=== PATIENT | female | born 1975 | race American Indian/Alaskan Native ===

== ENCOUNTER 2018-12-12 09:45 | Inpatient (IN) | payer MEDICAID ==
[2018-12-12 10:34] LABS: Basophils # (Auto) 0.1 K/mm3 (0.0-0.1); Basophils % (Auto) 0.9 % (0.0-1.8); Eosinophils # (Auto) 0.1 K/mm3 (0.0-0.4); Eosinophils % (Auto) 0.8 % (0.0-4.3); Hematocrit 35.1 % (30.3-42.9); Hemoglobin 11.2 gm/dl (10.1-14.3); Lymphocytes # (Auto) 2.4 K/mm3 (1.2-5.4); Lymphocytes % (Auto) 25.4 % (13.4-35.0); Mean Corpuscular HGB Conc 32 % (30-34); Mean Corpuscular Volume 80 fl (79-97); Monocytes # (Auto) 0.6 K/mm3 (0.0-0.8); Monocytes % (Auto) 6.8 % (0.0-7.3); Platelet Count 346 K/mm3 (140-440); Red Blood Count 4.38 M/mm3 (3.65-5.03); Red Cell Distribution Width 16.8 % (13.2-15.2)
[2018-12-12 10:50] LABS: INR 0.98 (0.87-1.13); Partial Thromboplastin Time 25.7 Sec. (24.2-36.6)
[2018-12-12 11:03] LABS: Alanine Aminotransferase 11 units/L (7-56); BUN/Creatinine Ratio 18; Blood Urea Nitrogen 11 mg/dL (7-17); Calcium 8.3 mg/dL (8.4-10.2); Hemolysis Index 86
[2018-12-12 11:14] LABS: Bilirubin,Direct < 0.2 mg/dL (0-0.2)
[2018-12-12] MEDS ORDERED: TYLENOL PO PRN (12:01)
[2018-12-12] MEDS ORDERED: ZOFRAN IV PRN (12:01)
[2018-12-12] MEDS ORDERED: SODIUM CHLORIDE FLUSH SYRINGE 10 ML IV PRN ×2 (12:01→13:22)
[2018-12-12] MEDS ORDERED: PROVENTIL IH PRN (12:01)
[2018-12-12] MEDS ORDERED: ANUCORT-HC PR PRN (12:03)
[2018-12-12] MEDS ORDERED: COLACE PO PRN (12:03)
[2018-12-12] MEDS ORDERED: IBUPROFEN PO PRN (12:03)
--- NOTE | 2018-12-12 12:12 | Emergency Department Report ---
ED Chest Pain HPI - General Chief Complaint: Arrhythmia/Palpitations Stated Complaint: SVT Time Seen by Provider: 12/12/18 10:04 Source: patient, EMS Mode of arrival: Stretcher Limitations: No Limitations - History of Present Illness Initial Comments: 43-year-old female with no prior cardiac history experienced a tachycardia and chest pain since about 2 AM. Finally she summoned EMS when she felt somewhat weak and dizzy. He was found to be in SVT. She was given 6 mg of adenosine and was successfully cardioverted in the field. She states this is first time she's had an episode like this. She's had no recent travel. She denies any leg pain or swelling. She denies taking any current prescription medication. She denies a family history of venous thromboembolism. She is morbidly obese. MD Complaint: chest pain -: Gradual Onset: during rest Pain Location: substernal Pain Radiation: none Severity: moderate Severity scale (0 -10): 0 Quality: heaviness Consistency: now resolved Improves With: other (resolved some time after adenosine but had chest pain immediately upon administration) Worsens With: other (I presume SVT) - Related Data Previous Rx's Medication Instructions Recorded Last Taken Type Ibuprofen [Motrin 800 MG tab] 800 mg PO Q8HR PRN #20 tablet 05/08/15 Unknown Rx Penicillin Vk [Veetids TAB] 500 mg PO Q8H #30 tablet 05/08/15 Unknown Rx predniSONE [Deltasone] 20 mg PO QAM #5 tab 05/08/15 Unknown Rx Docusate Sodium [Colace CAP] 100 mg PO BID PRN #30 capsule 06/09/15 Unknown Rx Hydrocort/Pramoxine [Proctofoam-Hc] 10 gm ME QHS #1 can 06/09/15 Unknown Rx Hydrocortisone [Anucort-HC SUPPOS] 25 mg RC BID PRN #10 supp.rect 06/09/15 Unknown Rx Allergies Allergy/AdvReac Type Severity Reaction Status Date / Time No Known Allergies Allergy Unverified 05/08/15 11:06 Heart Score - HEART Score History: Moderately suspicious EKG: Normal Age: < 45 Risk factors: 1-2 risk factors Troponin: < normal limit HEART Score: 2 - Critical Actions Critical Actions: 0-3 pts:0.9-1.7%risk of adverse cardiac event.Candidate for discharge ED Review of Systems ROS: Stated complaint: SVT Other details as noted in HPI Constitutional: denies: chills, fever Eyes: denies: eye pain, eye discharge, vision change ENT: denies: ear pain, throat pain Respiratory: shortness of breath. denies: cough, wheezing Cardiovascular: chest pain. denies: palpitations Endocrine: no symptoms reported Gastrointestinal: denies: abdominal pain, nausea, diarrhea Genitourinary: denies: urgency, dysuria, discharge Musculoskeletal: denies: back pain, joint swelling, arthralgia Skin: denies: rash, lesions Neurological: denies: headache, weakness, paresthesias Psychiatric: denies: anxiety, depression Hematological/Lymphatic: denies: easy bleeding, easy bruising ED Past Medical Hx - Past Medical History Previous Medical History?: No - Surgical History Past Surgical History?: Yes Hx Cholecystectomy: Yes - Social History Smoking Status: Never Smoker Substance Use Type: Alcohol - Medications Home Medications: Home Medications Medication Instructions Recorded Confirmed Last Taken Type Ibuprofen [Motrin 800 MG tab] 800 mg PO Q8HR PRN #20 tablet 05/08/15 Unknown Rx Penicillin Vk [Veetids TAB] 500 mg PO Q8H #30 tablet 05/08/15 Unknown Rx predniSONE [Deltasone] 20 mg PO QAM #5 tab 05/08/15 Unknown Rx Docusate Sodium [Colace CAP] 100 mg PO BID PRN #30 capsule 06/09/15 Unknown Rx Hydrocort/Pramoxine [Proctofoam-Hc] 10 gm ME QHS #1 can 06/09/15 Unknown Rx Hydrocortisone [Anucort-HC SUPPOS] 25 mg RC BID PRN #10 supp.rect 06/09/15 Unknown Rx ED Physical Exam - General Limitations: No Limitations General appearance: alert, in no apparent distress - Head Head exam: Present: atraumatic, normocephalic - Eye Eye exam: Present: normal appearance - ENT ENT exam: Present: mucous membranes moist - Neck Neck exam: Present: normal inspection - Respiratory Respiratory exam: Present: normal lung sounds bilaterally. Absent: respiratory distress - Cardiovascular Cardiovascular Exam: Present: regular rate, normal rhythm. Absent: systolic murmur, diastolic murmur, rubs, gallop - GI/Abdominal GI/Abdominal exam: Present: soft, normal bowel sounds. Absent: distended, tenderness, guarding, rebound, rigid - Extremities Exam Extremities exam: Present: normal inspection - Back Exam Back exam: Present: normal inspection - Neurological Exam Neurological exam: Present: alert, oriented X3, CN II-XII intact. Absent: motor sensory deficit - Psychiatric Psychiatric exam: Present: normal affect, normal mood - Skin Skin exam: Present: warm, dry, intact, normal color. Absent: rash ED Course Vital Signs 12/12/18 12/12/18 12/12/18 09:56 10:06 10:15 Temperature 97.4 F L Pulse Rate 97 H 95 H 96 H Respiratory 16 13 11 L Rate Blood Pressure 106/60 104/66 O2 Sat by Pulse 100 100 Oximetry 12/12/18 12/12/18 12/12/18 10:17 10:30 10:45 Temperature Pulse Rate 93 H 91 H Respiratory 11 L 13 12 Rate Blood Pressure 122/80 124/55 O2 Sat by Pulse 100 100 100 Oximetry 12/12/18 12/12/18 12/12/18 11:00 11:15 11:30 Temperature Pulse Rate 89 90 89 Respiratory 13 16 13 Rate Blood Pressure 124/55 109/60 122/92 O2 Sat by Pulse 100 99 98 Oximetry AURELIO score - Aurelio Score Age > 65: (0) No Aspirin use within the Past 7 Days: (0) No 3 or more CAD Risk Factors: (0) No 2 or more Angina events in past 24 hrs: (0) No Known CAD with more than 50% Stenosis: (0) No Elevated Cardiac Markers: (0) No ST Deviation Greater than 0.5mm: (0) No AURELIO Score: 0 ED Medical Decision Making - Lab Data Result diagrams: 12/12/18 10:08 12/12/18 10:08 Laboratory Results - last 24 hr 12/12/18 12/12/18 12/12/18 10:08 10:08 10:08 WBC 9.4 RBC 4.38 Hgb 11.2 Hct 35.1 MCV 80 MCH 26 L MCHC 32 RDW 16.8 H Plt Count 346 Lymph % (Auto) 25.4 [place] % (Auto) 6.8 Eos % (Auto) 0.8 Baso % (Auto) 0.9 Lymph # 2.4 [place] # 0.6 Eos # 0.1 Baso # 0.1 Seg Neutrophils % 66.1 Seg Neutrophils # 6.2 PT INR APTT D-Dimer Sodium 140 Potassium 4.8 Chloride 103.6 Carbon Dioxide 23 Anion Gap 18 BUN 11 Creatinine 0.6 L Estimated GFR > 60 BUN/Creatinine Ratio 18 Glucose 123 H Calcium 8.3 L Magnesium 1.80 Total Bilirubin 0.30 Direct Bilirubin < 0.2 AST 16 ALT 11 Alkaline Phosphatase 96 Troponin T < 0.010 NT-Pro-B Natriuret Pep 204.9 Total Protein 6.7 Albumin 3.0 L Albumin/Globulin Ratio 0.8 HCG, Qual Negative 12/12/18 12/12/18 10:14 10:14 WBC RBC Hgb Hct MCV MCH MCHC RDW Plt Count Lymph % (Auto) [place] % (Auto) Eos % (Auto) Baso % (Auto) Lymph # [place] # Eos # Baso # Seg Neutrophils % Seg Neutrophils # PT 13.6 INR 0.98 APTT 25.7 D-Dimer 493.8 H Sodium Potassium Chloride Carbon Dioxide Anion Gap BUN Creatinine Estimated GFR BUN/Creatinine Ratio Glucose Calcium Magnesium Total Bilirubin Direct Bilirubin AST ALT Alkaline Phosphatase Troponin T NT-Pro-B Natriuret Pep Total Protein Albumin Albumin/Globulin Ratio HCG, Qual - EKG Data -: EKG Interpreted by Me EKG shows normal: sinus rhythm, axis, intervals, QRS complexes Rate: normal - EKG Data Interpretation: nonspecific ST-T wave charito - Radiology Data interpreted by me: Chest x-ray shows no acute process Critical care attestation.: If time is entered above; I have spent that time in minutes in the direct care of this critically ill patient, excluding procedure time. ED Disposition Clinical Impression: SVT (supraventricular tachycardia), Morbid obesity with BMI of 60.0-69.9, adult Chest pain Qualifiers: Chest pain type: unspecified Qualified Code(s): R07.9 - Chest pain, unspecified Disposition: OP ADMIT IP TO THIS HOSP Is pt being admited?: Yes Does the pt Need Aspirin: Yes Condition: Stable Instructions: Chest Pain (ED) Referrals: CHANA STAHL MD [Primary Care Provider] - 3-5 Days Time of Disposition: 12:22
[2018-12-12] MEDS ORDERED: ASPIRIN PO ONE (12:22)
--- NOTE | 2018-12-12 12:45 | XRay Report ---
Single view chest: History: Hypertension. Findings: Normal cardiomediastinal silhouette. Trachea is midline. No consolidation, pneumothorax or pleural effusion. Impression: No acute cardiopulmonary findings.
--- NOTE | 2018-12-12 12:58 | Cat Scan Report ---
CTA chest: History: Chest pain. Findings: No endobronchial or mediastinal mass. No evidence of pulmonary embolism. No pleural pericardial effusion. Normal lung parenchyma. No consolidation or mass. Impression: No evidence of pulmonary embolism. No acute lung changes.
[2018-12-12] MEDS ORDERED: NITROSTAT SL PRN (13:22)
--- NOTE | 2018-12-12 13:22 | History and Physical Report ---
History of Present Illness Date of admission: 12/12/18 12:01 Chief complaint: My chest hurts History of present illness: 43 YO Female with MO, Obesity Hypoventilation, presents to ED for evaluation. Pt states that she experienced sudden onset chest pain that awoke her from sleep around 0200hrs. Pt also report chest palpitations. Pt states that her pain was 6/10, substernal, nonradiating, curshing in nature, worsened with deep breathing, relieved with rest. Pt acknowledges shortness of breath, decreased exercise tolerance, leg edema, dypsnea on exertion. EMS notified and upon arrival the patient was found to have SVT and was cardioverted with Adenosine. Pt transported to [facility]. Pt seen and evaluated in ED and found to have Chest Pain, SVT, as well as symptoms consistent with Diastolic CHF. Pt admitted to Telemetry. Cardiology consulted in ED. Pt denies fever, chills, NVD, Prolonged travel/immobility, individual/family history of DVT/PE/Blood Clotting Disorders, Productive cough, Hemoptysis, or BRBPR. Past History Past Medical History: other (MO, Obesity Hypoventilation Syndrome) Past Surgical History: cholecystectomy Social history: , lives with family. denies: smoking, alcohol abuse, prescription drug abuse Family history: hypertension Medications and Allergies Allergies Allergy/AdvReac Type Severity Reaction Status Date / Time No Known Allergies Allergy Unverified 05/08/15 11:06 Home Medications Medication Instructions Recorded Confirmed Last Taken Type No Known Home Medications [No 12/12/18 12/12/18 Unknown History Reported Home Medications] Active Meds: Active Medications Acetaminophen (Tylenol) 650 mg PO Q4H PRN PRN Reason: Pain MILD(1-3)/Fever >100.5/MARTINEZ Albuterol (Proventil) 2.5 mg IH Q4HRT PRN PRN Reason: Shortness Of Breath Docusate Sodium (Colace) 100 mg PO BID PRN PRN Reason: Constipation Famotidine (Pepcid) 20 mg PO BID ZACHERY Hydrocortisone Acetate (Anucort-Hc) 25 mg NH BID PRN PRN Reason: Pain Hydrocortisone/Pramoxine (Proctofoam-Hc) 5 applic NH QHS ZACHERY Ibuprofen (Motrin) 800 mg PO Q8HR PRN PRN Reason: Pain Ondansetron HCl (Zofran) 4 mg IV Q8H PRN PRN Reason: Nausea And Vomiting Prednisone (Deltasone) 20 mg PO QAM ZACHERY Sodium Chloride (Sodium Chloride Flush Syringe 10 Ml) 10 ml IV BID ZACHERY Sodium Chloride (Sodium Chloride Flush Syringe 10 Ml) 10 ml IV PRN PRN PRN Reason: LINE FLUSH Review of Systems Constitutional: no weight loss, no weight gain, no fever, no chills Ears, nose, mouth and throat: no ear pain, no ear discharge, no tinnitis, no decreased hearing, no nose pain Breasts: no change in shape, no swelling Cardiovascular: chest pain, palpitations, rapid/irregular heart beat, shortness of breath, dyspnea on exertion, leg edema, decreased exercise tolerance Gastrointestinal: no abdominal pain, no nausea, no vomiting, no diarrhea, no constipation Genitourinary Female: no pelvic pain, no flank pain, no menorrhagia, no dysuria, no urinary frequency, no urgency Rectal: no pain, no incontinence, no bleeding Musculoskeletal: no neck stiffness, no neck pain, no shooting arm pain, no arm numbness/tingling, no low back pain Integumentary: no rash, no pruritis, no redness, no sores Neurological: no transient paralysis, no paralysis, no weakness, no parathesias, no numbness, no tingling Psychiatric: no memory loss, no change in sleep habits, no sleep disturbances, no insomnia, no hypersomnia Endocrine: no cold intolerance, no heat intolerance, no polyphagia, no excessive thirst, no polydipsia, no polyuria Hematologic/Lymphatic: no easy bruising, no easy bleeding, no lymphadenopathy, no lymphedema Allergic/Immunologic: no urticaria, no allergic rhinitis, no persistent infections, no anaphylaxis, no angioedema Exam - Constitutional Vitals: Temp Pulse Resp BP Pulse Ox 97.4 F L 88 15 123/77 99 12/12/18 09:56 12/12/18 12:00 12/12/18 12:00 12/12/18 12:00 12/12/18 12:00 General appearance: Present: mild distress, obese - EENT Eyes: Present: PERRL ENT: hearing intact, clear oral mucosa - Neck Neck: Present: supple, normal ROM - Respiratory Respiratory effort: normal Respiratory: bilateral: CTA - Cardiovascular Heart Sounds: Present: S1 & S2. Absent: rub, click - Extremities Extremity abnormal: edema Peripheral Pulses: within normal limits - Abdominal General gastrointestinal: Present: soft, non-tender, non-distended, normal bowel sounds Female genitourinary: Present: normal - Integumentary Integumentary: Present: clear, warm, dry - Musculoskeletal Musculoskeletal: gait normal, strength equal bilaterally - Psychiatric Psychiatric: appropriate mood/affect, intact judgment & insight - Neurologic Neurologic: CNII-XII intact, moves all extremities Results - Labs CBC & Chem 7: 12/12/18 10:08 12/12/18 10:08 Labs: Abnormal lab results 12/12/18 12/12/18 12/12/18 Range/Units 10:08 10:08 10:14 MCH 26 L (28-32) pg RDW 16.8 H (13.2-15.2) % D-Dimer 493.8 H (0-234) ng/mlDDU Creatinine 0.6 L (0.7-1.2) mg/dL Glucose 123 H (65-100) mg/dL Calcium 8.3 L (8.4-10.2) mg/dL Albumin 3.0 L (3.9-5) g/dL Assessment and Plan - Patient Problems (1) CHF (congestive heart failure) Current Visit: Yes Status: Suspected Qualifiers: Heart failure chronicity: acute Plan to address problem: Admit to telemetry, Echo, Cardiology consulted in ED, strict I/O, daily weight, BNP, chest x ray, (2) Chest pain Current Visit: Yes Status: Acute Qualifiers: Chest pain type: unspecified Qualified Code(s): R07.9 - Chest pain, unspecified Plan to address problem: Serial cardiac enzymes, ekg, admit to telemetry, d dimer, morphine, supplemental oxygen, nitro, aspirin (3) SVT (supraventricular tachycardia) Current Visit: Yes Status: Acute Plan to address problem: Admit to telemetry, S/P Cardioversion with Adenosine, magnesium level (4) DVT prophylaxis Current Visit: Yes Status: Acute Plan to address problem: SCD to BLE while in bed.
[2018-12-12] MEDS ORDERED: ASPIRIN ONE (13:36)
[2018-12-12 18:19] LABS: Chol/HDL Ratio 2.73 %
[2018-12-12] MEDS: PEPCID PO SCH (21:06)
[2018-12-12] MEDS: SODIUM CHLORIDE FLUSH SYRINGE 10 ML IV SCH (21:07)
[2018-12-12] MEDS ORDERED: PROCTOFOAM-HC PR SCH (22:00)
[2018-12-13 06:20] LABS: BUN/Creatinine Ratio 15; Blood Urea Nitrogen 9 mg/dL (7-17); Calcium 8.2 mg/dL (8.4-10.2); Hemolysis Index 3
[2018-12-13] MEDS: SODIUM CHLORIDE FLUSH SYRINGE 10 ML IV SCH (09:05)
[2018-12-13] MEDS: PEPCID PO SCH (09:05)
--- NOTE | 2018-12-13 09:38 | Consultation ---
History of Present Illness Consult date: 12/13/18 Consult reason: other (SVT) History of present illness: Patient is a 43 year old woman with no prior medical history who is was brought in with palpitations. Patient reports she woke up with palpitations and dizziness. She reports drinking wine with dinner before going to bed. She denies chest pain and shortness of breath. There was no syncope. EMS was called and she was found to be in SVT. She was reportedly given 6 mg of adenosine and was successfully cardioverted in the field. There are no EMS strips available for review. 12 lead EKG done in the emergency department shows a normal sinus rhythm. Further evaluation with an echocardiogram shows a preserved left ventricular systolic function, ejection fraction 55-60%. Past History Past Surgical History: cholecystectomy Social history: , lives with family. denies: smoking, alcohol abuse, prescription drug abuse Family history: hypertension Medications and Allergies Allergies Allergy/AdvReac Type Severity Reaction Status Date / Time No Known Allergies Allergy Unverified 05/08/15 11:06 Home Medications Medication Instructions Recorded Confirmed Last Taken Type No Known Home Medications [No 12/12/18 12/12/18 Unknown History Reported Home Medications] Active Meds: Active Medications Acetaminophen (Tylenol) 650 mg PO Q4H PRN PRN Reason: Pain MILD(1-3)/Fever >100.5/MARTINEZ Albuterol (Proventil) 2.5 mg IH Q4HRT PRN PRN Reason: Shortness Of Breath Aspirin (Baby Aspirin) 81 mg PO QDAY [facility] Last Admin: 12/13/18 09:05 Dose: 81 mg Documented by: Docusate Sodium (Colace) 100 mg PO BID PRN PRN Reason: Constipation Famotidine (Pepcid) 20 mg PO BID [facility] Last Admin: 12/13/18 09:05 Dose: 20 mg Documented by: Hydrocortisone Acetate (Anucort-Hc) 25 mg ME BID PRN PRN Reason: Pain Hydrocortisone/Pramoxine (Proctofoam-Hc) 5 applic ME QHS [facility] Last Admin: 12/12/18 21:07 Dose: Not Given Documented by: Ibuprofen (Motrin) 800 mg PO Q8HR PRN PRN Reason: Pain Nitroglycerin (Nitrostat) 0.4 mg SL Q5M PRN PRN Reason: Chest Pain Ondansetron HCl (Zofran) 4 mg IV Q8H PRN PRN Reason: Nausea And Vomiting Pantoprazole Sodium (Protonix) 20 mg PO QDAY [facility] Last Admin: 12/13/18 09:04 Dose: 20 mg Documented by: Prednisone (Deltasone) 20 mg PO QAM [facility] Last Admin: 12/13/18 09:04 Dose: 20 mg Documented by: Sodium Chloride (Sodium Chloride Flush Syringe 10 Ml) 10 ml IV BID [facility] Last Admin: 12/13/18 09:05 Dose: 10 ml Documented by: Sodium Chloride (Sodium Chloride Flush Syringe 10 Ml) 10 ml IV PRN PRN PRN Reason: LINE FLUSH Sodium Chloride (Sodium Chloride Flush Syringe 10 Ml) 10 ml IV PRN PRN PRN Reason: LINE FLUSH Physical Examination Vital Signs Temp Pulse Resp BP Pulse Ox 97.4 F L 97 H 16 106/60 100 12/12/18 09:56 12/12/18 09:56 12/12/18 09:56 12/12/18 09:56 12/12/18 09:56 General appearance: no acute distress, obese HEENT: Positive: PERRL Neck: Positive: trachea midline Cardiac: Positive: Reg Rate and Rhythm Lungs: Positive: Decreased Breath Sounds Neuro: Positive: Grossly Intact Extremities: Absent: edema Results 12/12/18 10:08 12/13/18 05:13 Cardiac Enzymes 12/12/18 Range/Units 10:08 AST 16 (5-40) units/L Coagulation 12/12/18 Range/Units 10:14 PT 13.6 (12.2-14.9) Sec. INR 0.98 (0.87-1.13) APTT 25.7 (24.2-36.6) Sec. Lipids 12/12/18 Range/Units 17:10 Triglycerides 89 (2-149) mg/dL Cholesterol 156 (50-199) mg/dL HDL Cholesterol 57 (40-59) mg/dL Cholesterol/HDL Ratio 2.73 % CBC 12/12/18 Range/Units 10:08 WBC 9.4 (4.5-11.0) K/mm3 RBC 4.38 (3.65-5.03) M/mm3 Hgb 11.2 (10.1-14.3) gm/dl Hct 35.1 (30.3-42.9) % Plt Count 346 (140-440) K/mm3 Lymph # 2.4 (1.2-5.4) K/mm3 [place] # 0.6 (0.0-0.8) K/mm3 Eos # 0.1 (0.0-0.4) K/mm3 Baso # 0.1 (0.0-0.1) K/mm3 Comprehensive Metabolic Panel 12/12/18 12/13/18 Range/Units 10:08 05:13 Sodium 140 141 (137-145) mmol/L Potassium 4.8 3.6 D (3.6-5.0) mmol/L Chloride 103.6 104.4 (98-107) mmol/L Carbon Dioxide 23 25 (22-30) mmol/L BUN 11 9 (7-17) mg/dL Creatinine 0.6 L 0.6 L (0.7-1.2) mg/dL Glucose 123 H 119 H (65-100) mg/dL Calcium 8.3 L 8.2 L (8.4-10.2) mg/dL Direct Bilirubin < 0.2 (0-0.2) mg/dL AST 16 (5-40) units/L ALT 11 (7-56) units/L Alkaline Phosphatase 96 (35-129) units/L Total Protein 6.7 (6.3-8.2) g/dL Albumin 3.0 L (3.9-5) g/dL Assessment and Plan Paroxysmal SVT Obesity Echocardiogram reveals a preserved left ventricular systolic function, ejection fraction 55-60%. Check a TSH. Beta blockers for suppression of pSVT.
[2018-12-13] MEDS ORDERED: DELTASONE PO SCH (10:00)
[2018-12-13] MEDS ORDERED: BABY ASPIRIN PO SCH (10:00)
[2018-12-13] MEDS ORDERED: PROTONIX PO SCH (10:00)
[2018-12-13] MEDS ORDERED: TOPROL XL PO SCH (12:00)
[2018-12-13 16:51] VITALS: BP 154/89
--- NOTE | 2018-12-13 17:07 | Discharge Summary ---
Providers - Providers Date of Admission: 12/12/18 12:01 Date of discharge: 12/13/18 Attending physician: NORBERT BASS 12/12/18 Consult to Cardiac Rehabilitation [CONS] Routine Reason For Exam: Phase I 12/12/18 13:22 Consult to Cardiology [CONS] Routine Consulting Provider: AMBER DICK Reason For Exam: svt/chest pain [facility] MD Hospitalization Condition: Stable Procedures: ECHO -normal 55 to 60 percent Hospital course: Assessment and Plan (1) SVT (supraventricular tachycardia) Current Visit: Yes Status: Acute Plan to address problem: Cardioversion with Adenosine Now in sinus rhythm () CHF (congestive heart failure) Current Visit: Yes Status: Suspected Qualifiers: Heart failure chronicity: acute Plan to address problem: Normal EF Disposition: TO HOME OR SELFCARE Core Measure Documentation - Palliative Care Palliative Care/ Comfort Measures: Not Applicable - Core Measures Any of the following diagnoses?: none Exam - Constitutional Vitals: Temp Pulse Resp BP Pulse Ox 97.8 F 89 12 154/89 100 12/13/18 04:30 12/13/18 16:49 12/13/18 04:30 12/13/18 16:49 12/13/18 16:49 General appearance: Present: no acute distress, well-nourished - EENT Eyes: Present: PERRL ENT: hearing intact, clear oral mucosa - Neck Neck: Present: supple, normal ROM - Respiratory Respiratory effort: normal Respiratory: bilateral: CTA - Cardiovascular Heart rate: 78 Rhythm: regular Heart Sounds: Present: S1 & S2. Absent: rub, click - Extremities Extremities: no ischemia, pulses intact, pulses symmetrical, No edema Peripheral Pulses: within normal limits - Abdominal General gastrointestinal: Present: soft, non-tender, non-distended, normal bowel sounds Female genitourinary: Present: normal - Rectal Rectal Exam: deferred - Integumentary Integumentary: Present: clear, warm, dry - Musculoskeletal Musculoskeletal: gait normal, strength equal bilaterally - Psychiatric Psychiatric: appropriate mood/affect, intact judgment & insight - Neurologic Neurologic: CNII-XII intact, moves all extremities - Allied Health Allied health notes reviewed: nursing, case management Plan Activity: no restrictions Diet: low fat, low cholesterol, low salt Follow up with: CHANA STAHL MD [Primary Care Provider] - 3-5 Days
== END 2018-12-13 18:05 | disposition home or self-care (01) | DRG 309 ==
LOC: ED 09:45 → 4A 12:01
PROVIDERS: ADMIT Internal Medicine; ATTEND Internal Medicine
PROC: 5A2204Z Restoration of Cardiac Rhythm, Single (ICD-10-PCS; principal; 2018-12-12)
DX: I47.1 Supraventricular tachycardia (principal); Z68.44 Body mass index [BMI] 60.0-69.9, adult; E66.01 Morbid (severe) obesity due to excess calories; I50.9 Heart failure, unspecified; Z90.49 Acquired absence of other specified parts of digestive tract; Z82.49 Family history of ischemic heart disease and other diseases of the circulatory system; Z72.89 Other problems related to lifestyle
CPT/HCPCS: 36415; 71045; 71275; 80048; 80061; 80076; 83735; 83880; 84439; 84443; 84484; 84703; 85025; 85379; 85610; 85730; 93005; 93010; 93306; G0378; J7512; Q9967

== ENCOUNTER 2020-01-04 22:06 | Inpatient (IN) | payer MEDICAID, OTHER ==
[2020-01-04] MEDS ORDERED: ASPIRIN 325 MG TAB PO ONE (22:32)
[2020-01-04] MEDS ORDERED: dilTIAZem 50 MG/10 ML INJ ONE (22:37)
[2020-01-04] MEDS ORDERED: ADENOSINE 6 MG/2 ML INJ ONE (22:37)
[2020-01-04] MEDS ORDERED: ADENOSINE 6 MG/2 ML INJ IV ONE (22:38)
[2020-01-04 23:34] LABS: Basophils # (Auto) 0.2 K/mm3 (0.0-0.1); Basophils % (Auto) 1.3 % (0.0-1.8); Eosinophils # (Auto) 0.1 K/mm3 (0.0-0.4); Eosinophils % (Auto) 0.9 % (0.0-4.3); Hematocrit 32.6 % (30.3-42.9); Lymphocytes # (Auto) 4.5 K/mm3 (1.2-5.4); Lymphocytes % (Auto) 32.9 % (13.4-35.0); Mean Corpuscular HGB Conc 31 % (30-34); Mean Corpuscular Volume 72 fl (79-97); Monocytes # (Auto) 0.8 K/mm3 (0.0-0.8); Monocytes % (Auto) 5.6 % (0.0-7.3); Platelet Count 500 K/mm3 (140-440); Red Blood Count 4.54 M/mm3 (3.65-5.03); Red Cell Distribution Width 17.9 % (13.2-15.2)
--- NOTE | 2020-01-04 23:55 | Emergency Department Report ---
ED Palpitations HPI - General Chief Complaint: Chest Pain Stated Complaint: HEART RACE FAST Time Seen by Provider: 01/04/20 22:42 Source: patient Mode of arrival: Ambulatory Limitations: No Limitations - History of Present Illness Initial Comments: 44-year-old female with a past medical history of obesity and previous SVT presents the hospital complaining of palpitations since 5 or 6 PM. Symptoms are intermittent with mild intermittent shortness of breath. Patient denies chest pain, calf tenderness, leg edema, history of PE/DVT, cough, fever, or near syncope. Patient was seen here in December 2018 for similar symptoms. She was reported to be in SVT and converted after adenosine 6 mg in route to the hospital. Patient was admitted and had cardiac work-up including echocardiogram which was unremarkable. As per cardiology note a beta-wayne was recommended. Patient states she was on medications for her heart but discontinued without consulting a physician. As per medical record patient was placed on metoprolol 25 mg ER. - Related Data Previous Rx's Medication Instructions Recorded Last Taken Type Metoprolol Succinate [Toprol Xl] 25 mg PO QDAY #30 tab.er.24h 12/13/18 Unknown Rx Allergies Allergy/AdvReac Type Severity Reaction Status Date / Time No Known Allergies Allergy Unverified 05/08/15 11:06 ED Review of Systems ROS: Stated complaint: HEART RACE FAST Other details as noted in HPI Comment: All other systems reviewed and negative ED Past Medical Hx - Past Medical History Previous Medical History?: Yes Hx Congestive Heart Failure: No Hx Diabetes: No Hx Asthma: No Hx COPD: No Hx HIV: No - Surgical History Past Surgical History?: Yes Hx Cholecystectomy: Yes - Social History Smoking Status: Unknown if ever smoked Substance Use Type: None - Medications Home Medications: Home Medications Medication Instructions Recorded Confirmed Last Taken Type Metoprolol Succinate [Toprol Xl] 25 mg PO QDAY #30 tab.er.24h 12/13/18 Unknown Rx ED Physical Exam - General Limitations: No Limitations - Other Other exam information: General: No acute distress Head: Atraumatic Eyes: normal appearance ENT: Moist mucous membranes Neck: Normal appearance, no midline tenderness Chest: Clear to auscultation bilaterally CV: Tachycardic regular rhythm Abdomen: Soft, normal bowel sounds, nontender, nondistended, no rebound or guarding Back: Normal inspection Extremity: Normal inspection, full range of motion, no calf tenderness or leg edema Neuro: Alert O x 3, no facial asymmetry, speech clear, no gross motor sensory deficit Psych: Appropriate behavior Skin: No rash ED Course Vital Signs 01/04/20 01/04/20 01/04/20 22:22 22:32 22:34 Temperature 99.4 F Pulse Rate 194 H 192 H Respiratory 22 26 H Rate Blood Pressure 136/88 Blood Pressure [Left] O2 Sat by Pulse 98 Oximetry 01/04/20 01/04/20 01/04/20 22:46 23:00 23:07 Temperature Pulse Rate 106 H 107 H 109 H Respiratory 17 17 13 Rate Blood Pressure Blood Pressure 145/87 [Left] O2 Sat by Pulse 98 98 99 Oximetry 01/04/20 01/04/20 01/04/20 23:16 23:30 23:46 Temperature Pulse Rate 105 H 104 H 101 H Respiratory 21 20 16 Rate Blood Pressure 145/87 145/87 145/87 Blood Pressure [Left] O2 Sat by Pulse 99 100 99 Oximetry 01/05/20 01:56 Temperature 98.5 F Pulse Rate Respiratory Rate Blood Pressure Blood Pressure [Left] O2 Sat by Pulse Oximetry - Consultations Consultation #1: 01/05/20 01:45 case d/w Dr Núñez with [facility] requested that pt be admitted here ED Medical Decision Making - Lab Data Result diagrams: 01/04/20 22:40 01/04/20 22:40 Lab Results 01/04/20 01/04/20 01/04/20 Range/Units 22:40 22:40 22:40 WBC 13.7 H (4.5-11.0) K/mm3 RBC 4.54 (3.65-5.03) M/mm3 Hgb 10.0 L (10.1-14.3) gm/dl Hct 32.6 (30.3-42.9) % MCV 72 L (79-97) fl MCH 22 L (28-32) pg MCHC 31 (30-34) % RDW 17.9 H (13.2-15.2) % Plt Count 500 H (140-440) K/mm3 Lymph % (Auto) 32.9 (13.4-35.0) % Elk % (Auto) 5.6 (0.0-7.3) % Eos % (Auto) 0.9 (0.0-4.3) % Baso % (Auto) 1.3 (0.0-1.8) % Lymph # 4.5 (1.2-5.4) K/mm3 Elk # 0.8 (0.0-0.8) K/mm3 Eos # 0.1 (0.0-0.4) K/mm3 Baso # 0.2 H (0.0-0.1) K/mm3 Seg Neutrophils % 59.3 (40.0-70.0) % Seg Neutrophils # 8.1 H (1.8-7.7) K/mm3 PT (12.2-14.9) Sec. INR (0.87-1.13) D-Dimer (0-234) ng/mlDDU Sodium 141 (137-145) mmol/L Potassium 3.9 (3.6-5.0) mmol/L Chloride 103.3 (98-107) mmol/L Carbon Dioxide 22 (22-30) mmol/L Anion Gap 20 mmol/L BUN 11 (7-17) mg/dL Creatinine 0.7 (0.7-1.2) mg/dL Estimated GFR > 60 ml/min BUN/Creatinine Ratio 16 % Glucose 143 H (65-100) mg/dL Calcium 8.6 (8.4-10.2) mg/dL Magnesium 1.90 (1.7-2.3) mg/dL Troponin T < 0.010 (0.00-0.029) ng/mL TSH (0.270-4.200) mlU/mL Free T4 (0.76-1.46) ng/dL HCG, Qual (Negative) 01/04/20 01/04/20 01/04/20 Range/Units 22:40 22:40 22:40 WBC (4.5-11.0) K/mm3 RBC (3.65-5.03) M/mm3 Hgb (10.1-14.3) gm/dl Hct (30.3-42.9) % MCV (79-97) fl MCH (28-32) pg MCHC (30-34) % RDW (13.2-15.2) % Plt Count (140-440) K/mm3 Lymph % (Auto) (13.4-35.0) % Elk % (Auto) (0.0-7.3) % Eos % (Auto) (0.0-4.3) % Baso % (Auto) (0.0-1.8) % Lymph # (1.2-5.4) K/mm3 Elk # (0.0-0.8) K/mm3 Eos # (0.0-0.4) K/mm3 Baso # (0.0-0.1) K/mm3 Seg Neutrophils % (40.0-70.0) % Seg Neutrophils # (1.8-7.7) K/mm3 PT 13.4 (12.2-14.9) Sec. INR 1.01 (0.87-1.13) D-Dimer (0-234) ng/mlDDU Sodium (137-145) mmol/L Potassium (3.6-5.0) mmol/L Chloride (98-107) mmol/L Carbon Dioxide (22-30) mmol/L Anion Gap mmol/L BUN (7-17) mg/dL Creatinine (0.7-1.2) mg/dL Estimated GFR ml/min BUN/Creatinine Ratio % Glucose (65-100) mg/dL Calcium (8.4-10.2) mg/dL Magnesium (1.7-2.3) mg/dL Troponin T (0.00-0.029) ng/mL TSH 2.500 (0.270-4.200) mlU/mL Free T4 1.22 (0.76-1.46) ng/dL HCG, Qual Negative (Negative) 01/04/20 Range/Units 22:40 WBC (4.5-11.0) K/mm3 RBC (3.65-5.03) M/mm3 Hgb (10.1-14.3) gm/dl Hct (30.3-42.9) % MCV (79-97) fl MCH (28-32) pg MCHC (30-34) % RDW (13.2-15.2) % Plt Count (140-440) K/mm3 Lymph % (Auto) (13.4-35.0) % Elk % (Auto) (0.0-7.3) % Eos % (Auto) (0.0-4.3) % Baso % (Auto) (0.0-1.8) % Lymph # (1.2-5.4) K/mm3 Elk # (0.0-0.8) K/mm3 Eos # (0.0-0.4) K/mm3 Baso # (0.0-0.1) K/mm3 Seg Neutrophils % (40.0-70.0) % Seg Neutrophils # (1.8-7.7) K/mm3 PT (12.2-14.9) Sec. INR (0.87-1.13) D-Dimer 895.93 H (0-234) ng/mlDDU Sodium (137-145) mmol/L Potassium (3.6-5.0) mmol/L Chloride (98-107) mmol/L Carbon Dioxide (22-30) mmol/L Anion Gap mmol/L BUN (7-17) mg/dL Creatinine (0.7-1.2) mg/dL Estimated GFR ml/min BUN/Creatinine Ratio % Glucose (65-100) mg/dL Calcium (8.4-10.2) mg/dL Magnesium (1.7-2.3) mg/dL Troponin T (0.00-0.029) ng/mL TSH (0.270-4.200) mlU/mL Free T4 (0.76-1.46) ng/dL HCG, Qual (Negative) - EKG Data -: EKG Interpreted by [place] EKG shows normal: ST-T waves (no stemi) Rate: tachycardia (190) - EKG Data 01/05/20 00:03 Repeat EKG after adenosine 6 mg shows sinus tach rate [address] elevation DE or ischemic findings. - Radiology Data Radiology results: report reviewed CT ANGIOGRAPHY OF THE CHEST WITH INTRAVENOUS CONTRAST AND MULTIPLANAR MIP RECONSTRUCTIONS INDICATION / CLINICAL INFORMATION: SVT and elevated d-dimer. TECHNIQUE: Axial CT images were obtained after injection of 100 cc Omnipaque 350 IV contrast using CTA protocol. 3 plane MIP / 3D reconstructions were produced. All CT scans at this location are performed using CT dose reduction for ALARA by means of automated exposure control. COMPARISON: 12/12/18. FINDINGS: There is good opacification of the pulmonary arterial system bilaterally. There are multiple intraluminal filling defects in the pulmonary arterial system bilaterally which are predominantly segmental. There is involvement of both lower lobes, the right middle lobe and the right upper lobe. There is minimal patchy atelectasis in both lower lung zones. I do not identify an infarct or pleural effusion. The main pulmonary artery is normal in caliber and there is no evidence of right ventricular strain. The thoracic aorta is normal in caliber without dissection. The visualized coronary vessels are normal. There is a small simple cyst in the right lobe of the liver superiorly. No osseous abnormality is seen. IMPRESSION: Mild to moderate bilateral acute PTE. No evidence of right ventricular strain. - Medical Decision Making + svt with conversion to sinus rhythm at this adenosine 6 mg Resting heart rate 95-101 after conversion. D-dimer elevated. CTA obtained and positive for bilateral pulmonary emboli. Lovenox ordered Case discussed with [facility] attending and recommends admission here - Differential Diagnosis SVT, PE, electrolyte abnormalities, thyrotoxicosis, anemia Critical Care Time: No Critical care attestation.: If time is entered above; I have spent that time in minutes in the direct care of this critically ill patient, excluding procedure time. ED Disposition Clinical Impression: SVT (supraventricular tachycardia), Pulmonary embolism, bilateral, Morbid obesity with BMI of 60.0-69.9, adult Disposition: 09 OP ADMIT IP TO THIS HOSP Is pt being admited?: Yes Condition: Stable Time of Disposition: 02:07 (Dr Mathews to admit)
[2020-01-05 00:03] LABS: INR 1.01 (0.87-1.13)
[2020-01-05 00:16] LABS: BUN/Creatinine Ratio 16; Blood Urea Nitrogen 11 mg/dL (7-17); Calcium 8.6 mg/dL (8.4-10.2); Hemolysis Index 62
[2020-01-05 00:25] LABS: Free T4 (Free Thyroxine) 1.22 ng/dL (0.76-1.46)
--- NOTE | 2020-01-05 00:54 | XRay Report ---
CHEST 1 VIEW 12:01 AM INDICATION / CLINICAL INFORMATION: Chest Pain. COMPARISON: 12/12/18. FINDINGS: SUPPORT DEVICES: None. HEART / MEDIASTINUM: The heart size and pulmonary vasculature are normal. The aorta is normal in jaqueline marylou. LUNGS / PLEURA: No significant pulmonary or pleural abnormality. No pneumothorax. ADDITIONAL FINDINGS: There is mild chronic elevation of the right hemidiaphragm. IMPRESSION: No acute abnormality or significant change. Signer Name: Kalia Jarquin MD Signed: 01/05/2020 12:50 AM Workstation Name: [id number]
[2020-01-05] MEDS ORDERED: ENOXAPARIN 100 MG/1 ML INJ SUB-Q ONE (01:19)
--- NOTE | 2020-01-05 01:27 | Cat Scan Report ---
CT ANGIOGRAPHY OF THE CHEST WITH INTRAVENOUS CONTRAST AND MULTIPLANAR MIP RECONSTRUCTIONS INDICATION / CLINICAL INFORMATION: SVT and elevated d-dimer. TECHNIQUE: Axial CT images were obtained after injection of 100 cc Omnipaque 350 IV contrast using CTA protocol. 3 plane MIP / 3D reconstructions were produced. All CT scans at this location are performed using CT dose reduction for ALARA by means of automated exposure control. COMPARISON: 12/12/18. FINDINGS: There is good opacification of the pulmonary arterial system bilaterally. There are multiple intralum inal filling defects in the pulmonary arterial system bilaterally which are predominantly segmental. There is involvement of both lower lobes, the right middle lobe and the right upper lobe. There is mi nimal patchy atelectasis in both lower lung zones. I do not identify an infarct or pleural effusion. The main pulmonary artery is normal in caliber and there is no evidence of right ventricular strain. The thoracic aorta is normal in caliber without dissection. The visualized coronary vessels are cassidy l. There is a small simple cyst in the right lobe of the liver superiorly. No osseous abnormality is seen. IMPRESSION: Mild to moderate bilateral acute PTE. No evidence of right ventricular strain. CRITICAL RESULT: Time of Discovery (TRUST EVALUATION SUPERVISOR/CDT): 12:19 AM Time of Communication (TRUST EVALUATION SUPERVISOR/CDT): 12:19 AM Licensed Practitioner Receiving Report: Dr. Luke Read Back Performed: Not applicable. Signer Name: Kalia Jarquin MD Signed: 01/05/2020 1:22 AM Workstation Name: [id number]
[2020-01-05] MEDS ORDERED: MORPHINE 2 MG/1 ML INJ IV PRN (03:29)
[2020-01-05] MEDS ORDERED: ONDANSETRON 4 MG/2 ML INJ IV PRN (03:29)
[2020-01-05] MEDS ORDERED: ACETAMINOPHEN 325 MG TAB PO PRN (03:29)
--- NOTE | 2020-01-05 03:34 | History and Physical Report ---
History of Present Illness Date of admission: 01/05/20 02:02 History of present illness: 44-year-old woman with obesity comes emergency room for evaluation. She complains of palpitations that started around 6 PM yesterday evening, associated with shortness of breath. Palpitations were constant she came to the emergency room for further evaluation. She denies any chest pain, pain in her legs recent travel.In the emergency room she was found to be in SVT, she was converted with 6 mg of adenosine. Patient was admitted a year ago for SVT. The patient will be admitted for bilateral pulmonary emboli Review Of Systems: Constitutional: no weight loss, fever, chills Ears, eyes, nose, mouth and throat: no nasal congestion, no nasal discharge, no sinus pressure, blurry vision, diplopia Neck: No neck pain or rigidity. Cardiovascular: No palpitations, chest pain Respiratory: No shortness of breath, cough Gastrointestinal: No hematochezia Genitourinary : no dysuria, frequency Musculoskeletal: no muscle ache , joint pain Integumentary: no rash, no pruritis Neurological: no parathesias, focal weakness Endocrine: no cold or heat intolerance, no polyuria or polydipsia Hematologic/Lymphatic: no easy bruising, no easy bleeding, no gland swelling Allergic/Immunologic: no urticaria, no angioedema. PAST MEDICAL HISTORY: Obesity PAST SURGICAL HISTORY: Tubal ligation, cholecystectomy SOCIAL HISTORY: Denies alcohol, tobacco, drugs FAMILY HISTORY: Hypertension Medications and Allergies Allergies Allergy/AdvReac Type Severity Reaction Status Date / Time No Known Allergies Allergy Unverified 05/08/15 11:06 Home Medications Medication Instructions Recorded Confirmed Last Taken Type Metoprolol Succinate [Toprol Xl] 25 mg PO QDAY #30 tab.er.24h 12/13/18 Unknown Rx Active Meds: Active Medications Acetaminophen (Tylenol) 650 mg PO Q4H PRN PRN Reason: Pain MILD(1-3)/Fever >100.5/MARTINEZ Enoxaparin Sodium (Enoxaparin) 100 mg SUB-Q Q12HR ZACHERY Morphine Sulfate (Morphine) 2 mg IV Q4H PRN PRN Reason: Pain, Moderate (4-6) Ondansetron HCl (Zofran) 4 mg IV Q8H PRN PRN Reason: Nausea And Vomiting Sodium Chloride (Sodium Chloride Flush Syringe 10 Ml) 10 ml IV BID ZACHERY Sodium Chloride (Sodium Chloride Flush Syringe 10 Ml) 10 ml IV PRN PRN PRN Reason: LINE FLUSH Exam - Physical Exam Narrative exam: Gen. appearance: Patient lying in bed, no apparent distress HEENT: Normocephalic, atraumatic, pupils equally round and reactive to light, extraocular movement intact, and no sclericterus,. No JVD or thyromegaly or nodule,neck supple, no carotid bruit ,mucous membranes moist, no exudate or erythema Heart: S1, S2, regular rate and rhythm Lungs: Clear bilaterally, breathing comfortable Abdomen: Positive bowel sounds, nontender, nondistended, no organomegaly Extremity: no edema, cyanosis, clubbing Skin: No rash, nodules, warm, dry Neuro: Hernial nerves II to XII intact, speech is fluent, moves extremities, sensory intact - Constitutional Vitals: Temp Pulse Resp BP Pulse Ox 98.5 F 89 20 144/89 99 01/05/20 01:56 01/05/20 02:46 01/05/20 02:46 01/05/20 02:46 01/05/20 02:46 Results - Labs CBC & Chem 7: 01/04/20 22:40 01/04/20 22:40 Labs: Abnormal lab results 01/04/20 01/04/20 01/04/20 Range/Units 22:40 22:40 22:40 WBC 13.7 H (4.5-11.0) K/mm3 Hgb 10.0 L (10.1-14.3) gm/dl MCV 72 L (79-97) fl MCH 22 L (28-32) pg RDW 17.9 H (13.2-15.2) % Plt Count 500 H (140-440) K/mm3 Baso # 0.2 H (0.0-0.1) K/mm3 Seg Neutrophils # 8.1 H (1.8-7.7) K/mm3 D-Dimer 895.93 H (0-234) ng/mlDDU Glucose 143 H (65-100) mg/dL - Imaging and Cardiology Chest x-ray: report reviewed CT scan - chest: report reviewed Assessment and Plan Assessment Acute pulmonary emboli Status post Lovenox therapeutic Continue full dose Lovenox, check Doppler IV morphine for pain Leukocytosis most likely stress-induced Check blood cultures, urinalysis SVT secondary to pulmonary emboli DVT prophylaxis
[2020-01-05 06:36] LABS: Basophils # (Auto) 0.1 K/mm3 (0.0-0.1); Basophils % (Auto) 0.5 % (0.0-1.8); Eosinophils # (Auto) 0.1 K/mm3 (0.0-0.4); Eosinophils % (Auto) 0.8 % (0.0-4.3); Hematocrit 28.2 % (30.3-42.9); Hemoglobin 9.1 gm/dl (10.1-14.3); Lymphocytes # (Auto) 3.8 K/mm3 (1.2-5.4); Lymphocytes % (Auto) 34.8 % (13.4-35.0); Mean Corpuscular HGB Conc 32 % (30-34); Mean Corpuscular Volume 71 fl (79-97); Monocytes # (Auto) 0.6 K/mm3 (0.0-0.8); Monocytes % (Auto) 5.1 % (0.0-7.3); Platelet Count 397 K/mm3 (140-440); Red Blood Count 3.96 M/mm3 (3.65-5.03); Red Cell Distribution Width 18.3 % (13.2-15.2)
[2020-01-05 07:03] LABS: BUN/Creatinine Ratio 15; Blood Urea Nitrogen 9 mg/dL (7-17); Calcium 8.2 mg/dL (8.4-10.2); Hemolysis Index 0
[2020-01-05] MEDS: ENOXAPARIN 80 MG/0.8 ML INJ SUB-Q SCH (13:12)
[2020-01-05] MEDS ORDERED: ENOXAPARIN 100 MG/1 ML INJ SUB-Q SCH (13:30)
--- NOTE | 2020-01-05 14:48 | Progress Note ---
Assessment and Plan - Patient Problems (1) Morbid obesity with BMI of 60.0-69.9, adult Current Visit: Yes Status: Acute Plan to address problem: Patient obesity secondary to excess calories. Recommend low-carb diet. No sugar. Exercise when tolerated. (2) Pulmonary embolism, bilateral Current Visit: Yes Status: Acute Plan to address problem: Most likely underlying etiology sedentary lifestyle in the wake of quarantine and crisis sedentary lifestyle. Patient being treated with Lovenox for now. Will need case management and advance planning because patient currently has no insurance. Pain management have to take Coumadin. Have given options for Eliquis and/or Xarelto to be given outpatient. (3) SVT (supraventricular tachycardia) Current Visit: Yes Status: Acute Plan to address problem: Observe over the next 24 hours. As patient's oxygenation improves SVT should improve. (4) Chest pain Current Visit: No Status: Acute Qualifiers: Chest pain type: unspecified Qualified Code(s): R07.9 - Chest pain, unspecified Plan to address problem: Secondary to pulmonary embolism treat with pain control. Subjective Date of service: 01/05/20 Principal diagnosis: Bilateral pulmonary embolism Interval history: Patient obese 44-year-old female originally presented with palpitations and shortness of breath. Patient found to be in SVT. While undergoing further evaluation patient diagnosed with bilateral pulmonary embolism. This was etiology for SVT. Patient now admitted currently hemodynamically stable. Blood pressure stable. Patient oxygenating well up eating without any difficulty. Placed on Lovenox for treatment Objective - Constitutional Vitals: Vital Signs - 12hr 01/05/20 01/05/20 01/05/20 02:46 03:00 03:10 Temperature Pulse Rate 89 89 89 Respiratory 20 18 19 Rate Blood Pressure 144/89 151/98 151/98 Blood Pressure [Left] O2 Sat by Pulse 99 98 98 Oximetry 01/05/20 01/05/20 01/05/20 03:20 03:30 04:04 Temperature 97.0 F L Pulse Rate 90 89 90 Respiratory 21 20 20 Rate Blood Pressure 151/98 151/98 132/82 Blood Pressure [Left] O2 Sat by Pulse 97 100 98 Oximetry 01/05/20 01/05/20 01/05/20 06:34 08:16 11:32 Temperature 98.8 F 98.3 F Pulse Rate 89 87 92 H Respiratory 19 20 Rate Blood Pressure 139/77 Blood Pressure 129/74 [Left] O2 Sat by Pulse 99 98 Oximetry General appearance: Present: no acute distress, well-nourished - EENT Eyes: PERRL, EOM intact ENT: hearing intact, clear oral mucosa Ears: bilateral: normal - Neck Neck: supple, normal ROM - Respiratory Respiratory effort: normal Respiratory: bilateral: CTA - Breasts Breasts: normal - Cardiovascular Rhythm: regular Heart Sounds: Present: S1 & S2. Absent: gallop, rub Extremities: pulses intact, No edema, normal color, Full ROM - Gastrointestinal General gastrointestinal: Present: soft, non-tender, non-distended, normal bowel sounds - Genitourinary Female genitourinary: normal - Integumentary Integumentary: clear, warm, dry - Musculoskeletal Musculoskeletal: 1, strength equal bilaterally - Neurologic Neurologic: moves all extremities - Psychiatric Psychiatric: memory intact, appropriate mood/affect, intact judgment & insight - Labs CBC & Chem 7: 01/05/20 04:55 01/05/20 04:55 Labs: Abnormal lab results 01/04/20 01/04/20 01/04/20 Range/Units 22:40 22:40 22:40 WBC 13.7 H (4.5-11.0) K/mm3 Hgb 10.0 L (10.1-14.3) gm/dl Hct (30.3-42.9) % MCV 72 L (79-97) fl MCH 22 L (28-32) pg RDW 17.9 H (13.2-15.2) % Plt Count 500 H (140-440) K/mm3 Baso # 0.2 H (0.0-0.1) K/mm3 Seg Neutrophils # 8.1 H (1.8-7.7) K/mm3 D-Dimer 895.93 H (0-234) ng/mlDDU Carbon Dioxide (22-30) mmol/L Creatinine (0.7-1.2) mg/dL Glucose 143 H (65-100) mg/dL Calcium (8.4-10.2) mg/dL 01/05/20 01/05/20 Range/Units 04:55 04:55 WBC (4.5-11.0) K/mm3 Hgb 9.1 L (10.1-14.3) gm/dl Hct 28.2 L (30.3-42.9) % MCV 71 L (79-97) fl MCH 23 L (28-32) pg RDW 18.3 H (13.2-15.2) % Plt Count (140-440) K/mm3 Baso # (0.0-0.1) K/mm3 Seg Neutrophils # (1.8-7.7) K/mm3 D-Dimer (0-234) ng/mlDDU Carbon Dioxide 20 L (22-30) mmol/L Creatinine 0.6 L (0.7-1.2) mg/dL Glucose (65-100) mg/dL Calcium 8.2 L (8.4-10.2) mg/dL - Imaging and cardiology EKG: report reviewed, image reviewed CT scan - chest: report reviewed, image reviewed
[2020-01-05 15:22] LABS: Bilirubin,Urine NEG (Negative); Blood,Urine NEG (Negative); Color,Urine Yellow (Yellow); Mucus,Urine FEW /HPF; Protein,Urine <15 mg/dL mg/dL (Negative)
[2020-01-06] MEDS: ENOXAPARIN 80 MG/0.8 ML INJ SUB-Q SCH (02:15)
--- NOTE | 2020-01-06 09:08 | Discharge Summary ---
Providers - Providers Date of Admission: 01/05/20 02:02 Attending physician: JEROME DAVIES MD 01/06/20 09:02 Consult to Case Management [CONS] Routine Services Needed at Discharge: Water Resource Project Manager Notified:: CM Additional Physician Instructions: PLEASE PROVIDE ELIQUIS CARD Primary care physician: REFRIGERATOR ROOM CLERK Hospitalization Reason for admission: shortness of breath Condition: Stable Hospital course: 44-year-old woman with obesity comes emergency room for evaluation. She complains of palpitations that started around 6 PM yesterday evening, associated with shortness of breath. Palpitations were constant she came to the emergency room for further evaluation. She denies any chest pain, pain in her legs recent travel.In the emergency room she was found to be in SVT, she was converted with 6 mg of adenosine. Patient was admitted a year ago for SVT. The patient will be admitted for bilateral pulmonary emboli - Patient Problems (1) Morbid obesity with BMI of 60.0-69.9, adult Current Visit: Yes Status: Acute Plan to address problem: Patient obesity secondary to excess calories. Recommend low-carb diet. No sugar. Exercise when tolerated. 30 mins counselling (2) Pulmonary embolism, bilateral Current Visit: Yes Status: Acute Plan to address problem: Most likely underlying etiology sedentary lifestyle in the wake of quarantine and crisis sedentary lifestyle. Patient being treated with Lovenox for now. Will need case management and advance planning because patient currently has no insurance. PATEINT have to take Coumadin. Have given options for Eliquis and/or Xarelto to be given outpatient. SHE was however chose Eliquis and will establish follow up with PCP and also will complete the form for roberts adjustment and if unable to qualify, PCP will change to Warfarin. She has been given all the resources. she is clinically stable at this point to discharge. We discussed the severity of her illness and the importance of being compliant which she agreed to. (3) SVT (supraventricular tachycardia) Current Visit: Yes Status: Acute Plan to address problem: Observe over the next 24 hours. As patient's oxygenation improves SVT should improve. (4) Chest pain Current Visit: No Status: Acute Qualifiers: Chest pain type: unspecified Qualified Code(s): R07.9 - Chest pain, unspecified Plan to address problem: Secondary to pulmonary embolism treat with pain control. Disposition: -01 TO HOME OR SELFCARE Time spent for discharge: 35 mins Core Measure Documentation - Palliative Care Palliative Care/ Comfort Measures: Not Applicable - Core Measures Any of the following diagnoses?: DVT/PE - VTE Discharge Requirements Deep Vein Thrombosis/Pulmonary Embolism Present on Admission: No Has pt received <5 days of overlap therapy or INR<2.0: No (criteria for overlap therapy at discharge: on overlap therapy for less than 5 days or INR<2.0) Anticoagulant overlap therapy prescribed at discharge: Yes Exam - Physical Exam Narrative exam: Gen. appearance: Patient lying in bed, no apparent distress HEENT: Normocephalic, atraumatic, pupils equally round and reactive to light, extraocular movement intact, and no sclericterus,. No JVD or thyromegaly or nodule,neck supple, no carotid bruit ,mucous membranes moist, no exudate or erythema Heart: S1, S2, regular rate and rhythm Lungs: Clear bilaterally, breathing comfortable Abdomen: Positive bowel sounds, nontender, nondistended, no organomegaly Extremity: no edema, cyanosis, clubbing Skin: No rash, nodules, warm, dry Neuro: Hernial nerves II to XII intact, speech is fluent, moves extremities, sensory intact - Constitutional Vitals: Temp Pulse Resp BP Pulse Ox 98.6 F 80 18 119/68 97 01/06/20 04:13 01/06/20 06:00 01/06/20 04:13 01/06/20 04:13 01/06/20 04:13 Plan Activity: advance as tolerated, fall precautions Diet: low fat Special Instructions: record daily weights, record daily BP diary Follow up with: GODWIN DESHPANDE MD [Primary Care Provider] - 3-5 Days [facility] [Provider Group] - 7 Days AMBER DICK MD [Staff Physician] - 7 Days Prescriptions: Apixaban [Eliquis] 5 mg PO . DIR #60 tablet Metoprolol Succinate [Toprol Xl] 25 mg PO DAILY #30 tab.er.24h
[2020-01-06] MEDS ORDERED: APIXABAN 5 MG TAB PO ONE (10:00)
[2020-01-06 10:41] VITALS: BP 150/100
--- NOTE | 2020-01-06 13:55 | Vascular Lab Report ---
DUPLEX DOPPLER BILATERAL LOWER EXTREMITY VEINS INDICATION: Known pulmonary embolism FINDINGS: There is no thrombus within the deep veins of either lower extremity from the common femoral to the c contreras veins. There is normal compression and augmentation on spectral analysis. IMPRESSION: No sonographic evidence for DVT in either lower extremity. Signer Name: Ruben Gustafson MD Signed: 01/06/2020 1:51 PM Workstation Name: [id number]
== END 2020-01-06 13:35 | disposition home or self-care (01) | DRG 308 ==
LOC: ED 22:06 → 4A 01-05 02:02
PROVIDERS: ADMIT Internal Medicine; ATTEND Internal Medicine
DX: I47.1 Supraventricular tachycardia (principal); I26.99 Other pulmonary embolism without acute cor pulmonale; Z68.44 Body mass index [BMI] 60.0-69.9, adult; E66.01 Morbid (severe) obesity due to excess calories; R07.9 Chest pain, unspecified; Z90.49 Acquired absence of other specified parts of digestive tract; Z82.49 Family history of ischemic heart disease and other diseases of the circulatory system; Z98.51 Tubal ligation status
CPT/HCPCS: 36415; 71045; 71275; 80048; 81001; 83735; 84439; 84443; 84484; 84703; 85025; 85379; 85610; 87040; 93005; 93010; 93970; G0378; J0153; J1650; Q9967

== ENCOUNTER 2020-12-03 02:40 | Observation (INO) | payer MEDICAID ==
[2020-12-03] MEDS ORDERED: ASPIRIN 325 MG TAB PO ONE (02:53)
[2020-12-03] MEDS ORDERED: dilTIAZem 25 MG/5 ML INJ ONE (03:06)
[2020-12-03] MEDS ORDERED: dilTIAZem/D5W 100 MG/100 ML BAG IV ONE (03:07)
[2020-12-03] MEDS ORDERED: SODIUM CHLORIDE 0.9% 1000 ML 1,000 ML ONE (03:08)
[2020-12-03] MEDS ORDERED: dilTIAZem 25 MG/5 ML INJ IV ONE (03:10)
--- NOTE | 2020-12-03 03:14 | Emergency Department Report ---
ED Palpitations HPI - General Chief Complaint: Chest Pain Stated Complaint: CHEST PAIN Time Seen by Provider: 12/03/20 03:05 Source: patient Mode of arrival: Ambulatory Limitations: No Limitations - History of Present Illness Initial Comments: Patient is a 45-year-old female presents emergency room with complaints of racing heartbeat and palpitations. Patient states started an hour ago. Patient states symptoms are worsening. Patient states she gets this every once a while. Patient's last time she had it was a year ago. Patient states that her s ymptoms are worsening. Patient denies chest pain or shortness of breath. Patient denies any other symptoms. Patient denies headache. Patient denies recent travel. Patient denies recent international travel. Patient denies exposure to the novel coronavirus. Patient denies sick contacts. Patient denies fever and chills. Patient denies cough. Patient denies diarrhea. Patient denies coming in contact with anybody with symptoms of the novel coronavirus. MD Complaint: rapid heart beat, "heart racing", palpitations -: Sudden Context: occured during rest Arrythmia History: SVT Associated Symptoms: denies other symptoms Treatments Prior to Arrival: vagal maneuvers - Related Data Previous Rx's Medication Instructions Recorded Last Taken Type Metoprolol Succinate [Toprol Xl] 25 mg PO QDAY #30 tab.er.24h 12/13/18 Unknown Rx Apixaban [Eliquis] 5 mg PO . DIR #60 tablet 01/06/20 Unknown Rx Metoprolol Succinate [Toprol Xl] 25 mg PO DAILY #30 tab.er.24h 01/06/20 Unknown Rx Allergies Allergy/AdvReac Type Severity Reaction Status Date / Time No Known Allergies Allergy Unverified 05/08/15 11:06 ED Review of Systems ROS: Stated complaint: CHEST PAIN Other details as noted in HPI Constitutional: denies: chills, fever Eyes: denies: eye pain, eye discharge, vision change ENT: denies: ear pain, throat pain Respiratory: denies: cough, shortness of breath, wheezing Cardiovascular: as per HPI, palpitations. denies: chest pain Endocrine: no symptoms reported Gastrointestinal: denies: abdominal pain, nausea, diarrhea Genitourinary: denies: urgency, dysuria, discharge Musculoskeletal: denies: back pain, joint swelling, arthralgia Skin: denies: rash, lesions Neurological: denies: headache, weakness, paresthesias Psychiatric: denies: anxiety, depression Hematological/Lymphatic: denies: easy bleeding, easy bruising ED Past Medical Hx - Past Medical History Previous Medical History?: Yes Hx Hypertension: Yes Hx Congestive Heart Failure: No Hx Diabetes: No Hx Asthma: No Hx COPD: No Hx HIV: No Additional medical history: PR - Surgical History Past Surgical History?: No Hx Cholecystectomy: Yes - Family History Family history: no significant - Social History Smoking Status: Never Smoker Substance Use Type: None - Medications Home Medications: Home Medications Medication Instructions Recorded Confirmed Last Taken Type Metoprolol Succinate [Toprol Xl] 25 mg PO QDAY #30 tab.er.24h 12/13/18 01/05/20 Unknown Rx Apixaban [Eliquis] 5 mg PO . DIR #60 tablet 01/06/20 Unknown Rx Metoprolol Succinate [Toprol Xl] 25 mg PO DAILY #30 tab.er.24h 01/06/20 Unknown Rx ED Physical Exam - General Limitations: No Limitations General appearance: alert, in no apparent distress - Head Head exam: Present: atraumatic, normocephalic - Eye Eye exam: Present: normal appearance - ENT ENT exam: Present: mucous membranes moist - Neck Neck exam: Present: normal inspection - Respiratory Respiratory exam: Present: normal lung sounds bilaterally. Absent: respiratory distress - Cardiovascular Cardiovascular Exam: Present: regular rate, normal rhythm, tachycardia. Absent: systolic murmur, diastolic murmur, rubs, gallop - GI/Abdominal GI/Abdominal exam: Present: soft, normal bowel sounds - Extremities Exam Extremities exam: Present: normal inspection - Back Exam Back exam: Present: normal inspection - Neurological Exam Neurological exam: Present: alert, oriented X3 - Psychiatric Psychiatric exam: Present: normal affect, normal mood - Skin Skin exam: Present: warm, dry, intact, normal color. Absent: rash ED Course Vital Signs 12/03/20 12/03/20 12/03/20 02:49 02:57 03:04 Temperature 98.8 F Pulse Rate 194 H 185 H Respiratory 18 18 Rate Blood Pressure Blood Pressure 105/76 [Right] O2 Sat by Pulse 98 99 Oximetry 12/03/20 12/03/20 12/03/20 03:06 03:08 03:10 Temperature Pulse Rate 188 H 188 H 186 H Respiratory Rate Blood Pressure Blood Pressure [Right] O2 Sat by Pulse 99 Oximetry 12/03/20 12/03/20 12/03/20 03:11 03:12 03:13 Temperature Pulse Rate 103 H 104 H 103 H Respiratory Rate Blood Pressure 77/53 77/53 93/40 Blood Pressure [Right] O2 Sat by Pulse 100 99 99 Oximetry 12/03/20 12/03/20 12/03/20 03:14 03:15 03:16 Temperature Pulse Rate 103 H 101 H 102 H Respiratory Rate Blood Pressure 94/53 94/53 94/53 Blood Pressure [Right] O2 Sat by Pulse 100 100 Oximetry 12/03/20 12/03/20 12/03/20 03:18 03:29 03:30 Temperature Pulse Rate 105 H 105 H 105 H Respiratory Rate Blood Pressure 94/53 111/66 111/76 Blood Pressure [Right] O2 Sat by Pulse 100 100 Oximetry - Reevaluation(s) Reevaluation #1: Patient on the heart monitor showed 180 heart rate. Patient will be given Cardizem. 12/03/20 03:05 Reevaluation #2: Immediately after Cardizem, the patient's heart rate improved to 100. Patient given fluids. Patient will be placed on a Cardizem drip. 12/03/20 03:11 Reevaluation #3: Patient denies palpitations. Patient heart rate is better. Patient is on a Cardizem drip. Patient is receiving fluids. 12/03/20 04:00 Reevaluation #4: I discussed all results with patient. I discussed plan of care with patient. Patient agrees with plan of care and admission. Patient to be admitted to the hospitalist service. 12/03/20 04:53 - Consultations Consultation #1: Hospitalist consulted for admission. Hospitalist to admit patient. 12/03/20 04:54 ED Medical Decision Making - Lab Data Result diagrams: 12/03/20 02:57 12/03/20 02:57 - EKG Data -: EKG Interpreted by Me EKG shows normal: sinus rhythm, axis, intervals, QRS complexes, ST-T waves Rate: tachycardia - Radiology Data Radiology results: report reviewed, image reviewed interpreted by me: Chest x-ray: No pneumonia, no pneumothorax, no foreign body, no osseous findings, no acute findings XR chest 1V ap INDICATION / CLINICAL INFORMATION: palpitations. COMPARISON: 01/05/2020 FINDINGS: SUPPORT DEVICES: None. HEART /PULMONARY VASCULATURE: No significant abnormality. LUNGS / PLEURA: No significant pulmonary or pleural abnormality. No pneumothorax. ADDITIONAL FINDINGS: No significant additional findings. IMPRESSION: 1. No acute findings. - Medical Decision Making Patient is a 45-year-old female who presents emergency room with complaints of tach cardia and racing heart rate and palpitations. Patient found to be in the 190s in triage and brought directly to the acute treatment room. Patient given fluids and given Cardizem push. Patient immediately converted to sinus tach after the Cardizem push and then the patient was placed on a Cardizem drip. Patient given fluids while in the ER. Patient had labs done which were essentially unremarkable except for elevated BNP, anemia and elevated WBC. Patient had a chest x-ray which was negative for acute findings. Patient mated to the hospital service for further evaluation and treatment. Patient admitted to the ICU for the Cardizem drip. - Differential Diagnosis SVT, A. fib RVR, tachycardia, palpitations, Critical Care Time: Yes Critical care time in (mins) excluding proc time.: 35 Critical care attestation.: If time is entered above; I have spent that time in minutes in the direct care of this critically ill patient, excluding procedure time. Critical Care Time: 35 minutes ED Disposition Clinical Impression: SVT (supraventricular tachycardia), Palpitations Anemia Qualifiers: Anemia type: unspecified type Qualified Code(s): D64.9 - Anemia, unspecified Disposition: DC-09 OP ADMIT IP TO THIS HOSP Is pt being admited?: Yes Does the pt Need Aspirin: No Condition: Critical Time of Disposition: 04:56
[2020-12-03] MEDS ORDERED: SODIUM CHLORIDE 0.9% 1000 ML 1,000 ML IV ONE (03:24)
--- NOTE | 2020-12-03 03:29 | XRay Report ---
XR chest 1V ap INDICATION / CLINICAL INFORMATION: palpitations. COMPARISON: 01/05/2020 FINDINGS: SUPPORT DEVICES: None. HEART /PULMONARY VASCULATURE: No significant abnormality. LUNGS / PLEURA: No significant pulmonary or pleural abnormality. No pneumothorax. ADDITIONAL FINDINGS: No significant additional findings. IMPRESSION: 1. No acute findings. Signer Name: Eduardo Mcarthur MD Signed: 12/03/2020 3:25 AM Workstation Name: [id number]
[2020-12-03 03:47] LABS: Mean Corpuscular HGB Conc 30 % (30-34); Platelet Count 570 K/mm3 (140-440); Red Blood Count 4.66 M/mm3 (3.65-5.03); Red Cell Distribution Width 19.7 % (13.2-15.2)
[2020-12-03 03:54] LABS: Alanine Aminotransferase 10 units/L (7-56); Albumin 3.4 g/dL (3.9-5); BUN/Creatinine Ratio 14; Blood Urea Nitrogen 11 mg/dL (7-17); Calcium 9.2 mg/dL (8.4-10.2); Hemolysis Index 0
[2020-12-03 03:59] LABS: Hematocrit 28.7 % (30.3-42.9); Hemoglobin 8.5 gm/dl (10.1-14.3); Mean Corpuscular Volume 62 fl (79-97)
[2020-12-03] MEDS ORDERED: dilTIAZem/D5W 100 MG/100 ML BAG IV SCH (04:00)
[2020-12-03] MEDS ORDERED: MORPHINE 2 MG/1 ML INJ IV PRN (06:29)
[2020-12-03] MEDS ORDERED: ONDANSETRON 4 MG/2 ML INJ IV PRN (06:29)
[2020-12-03] MEDS ORDERED: MAGNESIUM HYDROXIDE (MOM) ORAL LIQD UDC PO PRN (06:29)
[2020-12-03] MEDS ORDERED: ACETAMINOPHEN 325 MG TAB PO PRN (06:29)
--- NOTE | 2020-12-03 06:38 | History and Physical Report ---
History of Present Illness Date of examination: 12/03/20 Date of admission: 12/03/20 04:47 Chief complaint: Palpitations History of present illness: 5-year-old female with known history of hypertension presenting to the emergency room today complaining of palpitations. Symptoms was said to have started a few hours prior to reporting to the emergency room. She denies any chest pain, no shortness of breath, no fever or chills, no nausea vomiting, no abdominal pain, no headache or dizziness. Patient indicates that she had a similar episode about a year ago and that she has been set up to follow-up with a insulation mechanic-Dr. Bender. She has also been compliant with her medications. Upon arrival in the emergency room patient was found to be in SVT. She was sub sequently started on Cardizem drip. Further work-up reveals elevated WBC count of 16, hemoglobin of 8.5. Chest x- ray was unremarkable and TSH was slightly elevated at 5.2. Patient is being admitted with SVT. Past History Past Medical History: hypertension, other (SVT) Past Surgical History: cholecystectomy Social history: no significant social history Family history: no significant family history Medications and Allergies Allergies Allergy/AdvReac Type Severity Reaction Status Date / Time No Known Allergies Allergy Unverified 05/08/15 11:06 Home Medications Medication Instructions Recorded Confirmed Last Taken Type Metoprolol Succinate [Toprol Xl] 25 mg PO QDAY #30 tab.er.24h 12/13/18 01/05/20 Unknown Rx Apixaban [Eliquis] 5 mg PO . DIR #60 tablet 01/06/20 Unknown Rx Metoprolol Succinate [Toprol Xl] 25 mg PO DAILY #30 tab.er.24h 01/06/20 Unknown Rx Active Meds: Active Medications Acetaminophen (Acetaminophen 325 Mg Tab) 650 mg PO Q4H PRN PRN Reason: Pain MILD(1-3)/Fever >100.5/MARTINEZ Diltiazem HCl (Cardizem/D5w 100mg/100ml) 100 mg in 100 mls @ 5 mls/hr IV TITR ZACHERY; Protocol Last Admin: 12/03/20 03:29 Dose: 5 mg/hr, 5 mls/hr Documented by: Magnesium Hydroxide (Magnesium Hydroxide (Mom) Oral Liqd Udc) 30 ml PO Q4H PRN PRN Reason: Constipation Morphine Sulfate (Morphine 2 Mg/1 Ml Inj) 2 mg IV Q4H PRN PRN Reason: Pain, Moderate (4-6) Ondansetron HCl (Ondansetron 4 Mg/2 Ml Inj) 4 mg IV Q8H PRN PRN Reason: Nausea And Vomiting Sodium Chloride (Sodium Chloride 0.9% 10 Ml Flush Syringe) 10 ml IV BID ZACHERY Sodium Chloride (Sodium Chloride 0.9% 10 Ml Flush Syringe) 10 ml IV PRN PRN PRN Reason: LINE FLUSH Review of Systems Constitutional: no fever, no chills, no weakness Ears, nose, mouth and throat: no nasal congestion, no sore throat Cardiovascular: palpitations, no chest pain Respiratory: no cough, no shortness of breath Gastrointestinal: no abdominal pain, no nausea, no vomiting, no diarrhea Genitourinary Female: no pelvic pain, no flank pain, no dysuria Musculoskeletal: no neck pain, no low back pain Integumentary: no rash, no pruritis Neurological: no headaches, no confusion Psychiatric: no anxiety, no depression Exam - Constitutional Vitals: Temp Pulse Resp BP Pulse Ox 98.8 F 93 H 18 112/67 100 12/03/20 02:57 12/03/20 05:30 12/03/20 02:57 12/03/20 05:30 12/03/20 05:30 General appearance: Present: no acute distress, well-nourished - EENT Eyes: Present: PERRL, EOM intact. Absent: scleral icterus ENT: hearing intact, clear oral mucosa, dentition normal - Neck Neck: Present: supple, normal ROM - Respiratory Respiratory effort: normal Respiratory: bilateral: CTA - Cardiovascular Rhythm: regular Heart Sounds: Present: S1 & S2. Absent: gallop, systolic murmur, diastolic murmur, rub, click Details: Tachycardic. - Extremities Extremities: no ischemia, pulses intact, pulses symmetrical, No edema, normal temperature, normal color, Full ROM Peripheral Pulses: within normal limits - Abdominal General gastrointestinal: Present: soft, non-tender, non-distended, normal bowel sounds. Absent: mass - Integumentary Integumentary: Present: clear, warm, dry. Absent: rash - Musculoskeletal Musculoskeletal: strength equal bilaterally - Psychiatric Psychiatric: appropriate mood/affect, intact judgment & insight, memory intact, cooperative - Neurologic Neurologic: CNII-XII intact, no focal deficits, moves all extremities HEART Score - HEART Score Troponin: Troponin T < 0.010 ng/mL (0.00-0.029) 12/03/20 02:57 Results - Labs CBC & Chem 7: 12/03/20 02:57 12/03/20 02:57 Labs: Abnormal lab results 12/03/20 12/03/20 12/03/20 Range/Units 02:57 02:57 03:55 WBC 16.0 H (4.5-11.0) K/mm3 Hgb 8.5 L (10.1-14.3) gm/dl Hct 28.7 L (30.3-42.9) % MCV 62 L (79-97) fl MCH 18 L (28-32) pg RDW 19.7 H (13.2-15.2) % Plt Count 570 H (140-440) K/mm3 Sodium 136 L (137-145) mmol/L Glucose 131 H (65-100) mg/dL NT-Pro-B Natriuret Pep 564.2 H (0-450) pg/mL Albumin 3.4 L (3.9-5) g/dL TSH 5.200 H (0.270-4.200) mlU/mL Assessment and Plan - Patient Problems (1) SVT (supraventricular tachycardia) Current Visit: Yes Status: Acute Plan to address problem: Patient has been placed on Cardizem drip. We will request cardiology evaluation. Patient will be scheduled for echocardiogram. (2) DVT prophylaxis Current Visit: No Status: Acute Plan to address problem: Patient currently on anticoagulation. (3) Full code status Current Visit: Yes Status: Acute Plan to address problem: Patient is a full code.
[2020-12-03] MEDS ORDERED: APIXABAN 5 MG TAB PO SCH (07:00)
--- NOTE | 2020-12-03 09:42 | Consultation ---
History of Present Illness Consult date: 12/03/20 Consult reason: other (SVT) History of present illness: This is a 45 year old F who takes Toprol XL for paroxysmal SVT. A year ago she was hospitalized at this hospital with recurrent SVT and acute PE. On follow up with her toe puller, patient had reportedly quit taking warfarin. A follow up CTA chest in July was negative for PE. Patient presents to this hospital with palpitations, admitted with recurrent SVT which was treated with intravenous Diltiazem. There are no strips available from the emergency department for cardiac review. Currently, she is stable sinus rhythm on telemetry. Patient admits compliance with her medication. Denies caffeine and alcohol intake. Denies shortness of breath and denies dizziness. No report of syncope. TSH is 5.2. An 12-lead ECG is sinus rhythm, no acute ischemic changes. Past History Past Medical History: pulmonary embolism, other (SVT) Past Surgical History: cholecystectomy Social history: no significant social history Family history: no significant family history Medications and Allergies Allergies Allergy/AdvReac Type Severity Reaction Status Date / Time No Known Allergies Allergy Unverified 05/08/15 11:06 Home Medications Medication Instructions Recorded Confirmed Last Taken Type Metoprolol Succinate [Toprol Xl] 25 mg PO QDAY #30 tab.er.24h 12/13/18 01/05/20 Unknown Rx Apixaban [Eliquis] 5 mg PO . DIR #60 tablet 01/06/20 Unknown Rx Metoprolol Succinate [Toprol Xl] 25 mg PO DAILY #30 tab.er.24h 01/06/20 Unknown Rx Active Meds: Active Medications Acetaminophen (Acetaminophen 325 Mg Tab) 650 mg PO Q4H PRN PRN Reason: Pain MILD(1-3)/Fever >100.5/MARTINEZ Apixaban (Apixaban 5 Mg Tab) 5 mg PO . DIR ZACHERY; Protocol Diltiazem HCl (Cardizem/D5w 100mg/100ml) 100 mg in 100 mls @ 5 mls/hr IV TITR ZACHERY; Protocol Last Admin: 12/03/20 03:29 Dose: 5 mg/hr, 5 mls/hr Documented by: Magnesium Hydroxide (Magnesium Hydroxide (Mom) Oral Liqd Udc) 30 ml PO Q4H PRN PRN Reason: Constipation Metoprolol Succinate (Metoprolol Succinate Xl 25 Mg Tab) 25 mg PO DAILY ZACHERY Morphine Sulfate (Morphine 2 Mg/1 Ml Inj) 2 mg IV Q4H PRN PRN Reason: Pain, Moderate (4-6) Ondansetron HCl (Ondansetron 4 Mg/2 Ml Inj) 4 mg IV Q8H PRN PRN Reason: Nausea And Vomiting Sodium Chloride (Sodium Chloride 0.9% 10 Ml Flush Syringe) 10 ml IV BID ZACHERY Sodium Chloride (Sodium Chloride 0.9% 10 Ml Flush Syringe) 10 ml IV PRN PRN PRN Reason: LINE FLUSH Review of Systems Cardiovascular: no chest pain, no orthopnea, no palpitations, no rapid/irregular heart beat, no edema, no syncope, no lightheadedness, no shortness of breath Physical Examination Vital Signs Resp 18 12/03/20 02:49 General appearance: no acute distress, obese HEENT: Positive: PERRL Neck: Positive: trachea midline Cardiac: Positive: Reg Rate and Rhythm Lungs: Positive: Normal Breath Sounds Neuro: Positive: Grossly Intact Extremities: Absent: edema Results 12/03/20 02:57 12/03/20 02:57 Cardiac Enzymes 12/03/20 Range/Units 02:57 AST 11 (5-40) units/L CBC 12/03/20 Range/Units 02:57 WBC 16.0 H (4.5-11.0) K/mm3 RBC 4.66 (3.65-5.03) M/mm3 Hgb 8.5 L (10.1-14.3) gm/dl Hct 28.7 L (30.3-42.9) % Plt Count 570 H (140-440) K/mm3 Lymph # (Auto) Labor And Delivery Nurse Comprehensive Metabolic Panel 12/03/20 Range/Units 02:57 Sodium 136 L (137-145) mmol/L Potassium 4.1 (3.6-5.0) mmol/L Chloride 100.1 (98-107) mmol/L Carbon Dioxide 26 (22-30) mmol/L BUN 11 (7-17) mg/dL Creatinine 0.8 (0.6-1.2) mg/dL Glucose 131 H (65-100) mg/dL Calcium 9.2 (8.4-10.2) mg/dL AST 11 (5-40) units/L ALT 10 (7-56) units/L Alkaline Phosphatase 114 (35-129) units/L Total Protein 7.0 (6.3-8.2) g/dL Albumin 3.4 L (3.9-5) g/dL Assessment and Plan - Patient Problems (1) SVT (supraventricular tachycardia) Current Visit: Yes Status: Acute Plan to address problem: Recurrent SVT on Toprol XL and IV diltiazem currently in sinus rhythm TSH is 5.2 LVEF 55-60% by echo 12/2018 Recommendations: Will transition IV diltiazem to oral form. Repeat an echocardiogram.
[2020-12-03] MEDS ORDERED: METOPROLOL SUCCINATE XL 25 MG TAB PO SCH (10:00)
[2020-12-03 10:52] LABS: Total Cells Counted 100
[2020-12-03 10:53] LABS: Hypochromasia 2+
[2020-12-03 10:54] LABS: Platelet Estimate Consistent w Auto; Tear Drop Cells Rare
[2020-12-03] MEDS ORDERED: dilTIAZem 60 MG TAB PO SCH (14:00)
--- NOTE | 2020-12-03 15:11 | Event Note ---
Date: 12/03/20 Patient seen and examined This is the second visit after midnight 45-year-old female with known history of hypertension presenting to the emergency room complaining of palpitations. Patient indicates that she had a similar episode about a year ago and that she has been set up to follow-up with a casualty underwriter-Dr. Bender. Upon arrival in the emergency room patient was found to be in SVT. She was subsequently started on Cardizem drip. Further work-up reveals elevated WBC count of 16, hemoglobin of 8.5. Chest x- ray was unremarkable and TSH was slightly elevated at 5.2. Patient was admitted with SVT. Cardiology consulted, will follow recommendation.
[2020-12-03] MEDS: ASPIRIN EC 81 MG TAB PO SCH (16:05)
[2020-12-03] MEDS: METOPROLOL TARTRATE 50 MG TAB PO SCH ×2 (16:05→21:18)
[2020-12-04 01:48] LABS: Bacteria,Urine 1+ /HPF (Negative); Bilirubin,Urine NEG (Negative); Blood,Urine NEG (Negative); Color,Urine Yellow (Yellow); Mucus,Urine FEW /HPF; Protein,Urine <15 mg/dL mg/dL (Negative); Urobilinogen,Urine < 2.0 mg/dL (<2.0)
[2020-12-04 04:34] VITALS: BP 132/77
[2020-12-04 06:49] LABS: Basophils % (Auto) 0.4 % (0.0-1.8); Eosinophils # (Auto) 0.2 K/mm3 (0.0-0.4); Eosinophils % (Auto) 1.6 % (0.0-4.3); Lymphocytes # (Auto) 3.4 K/mm3 (1.2-5.4); Lymphocytes % (Auto) 29.9 % (13.4-35.0); Mean Corpuscular HGB Conc 29 % (30-34); Monocytes # (Auto) 0.8 K/mm3 (0.0-0.8); Monocytes % (Auto) 6.7 % (0.0-7.3); Platelet Count 487 K/mm3 (140-440); Red Blood Count 4.32 M/mm3 (3.65-5.03); Red Cell Distribution Width 19.9 % (13.2-15.2)
[2020-12-04 06:58] LABS: Hematocrit 26.3 % (30.3-42.9); Hemoglobin 7.6 gm/dl (10.1-14.3)
[2020-12-04 06:59] LABS: Mean Corpuscular Volume 61 fl (79-97)
[2020-12-04 07:00] LABS: INR 1.05 (0.87-1.13)
[2020-12-04 07:08] LABS: BUN/Creatinine Ratio 15; Blood Urea Nitrogen 9 mg/dL (7-17); Calcium 8.3 mg/dL (8.4-10.2); Hemolysis Index 0
--- NOTE | 2020-12-04 08:08 | Discharge Summary ---
Providers - Providers Date of Admission: 12/03/20 04:47 Attending physician: JEROME DAVIES MD 12/03/20 06:29 Consult to Physician [CONS] Routine Comment: romel barber/ catie Consulting Provider: PETER LOPEZ Physician Instructions: Reason For Exam: SVT Primary care physician: NORBERT BASS Hospitalization Reason for admission: SVT Condition: Stable Hospital course: 45-year-old female with known history of hypertension presenting to the emergency room today complaining of palpitations. Symptoms was said to have started a few hours prior to reporting to the emergency room. She denies any chest pain, no shortness of breath, no fever or chills, no nausea vomiting, no abdominal pain, no headache or dizziness. Patient indicates that she had a similar episode about a year ago and that she has been set up to follow-up with a changer fixer-Dr. Lopez. She has also been compliant with her medications. Upon arrival in the emergency room patient was found to be in SVT. She was subsequently started on Cardizem drip. Further work-up reveals elevated WBC count of 16, hemoglobin of 8.5. Chest x- ray was unremarkable and TSH was slightly elevated at 5.2. Patient is being admitted with SVT. Cardiology evaluated the patient and per their documentation as noted below The patient is a 45-year-old woman with a history of paroxysmal supraventricular tachycardia, currently taking only 25 mg of metoprolol daily. She presented to the hospital at this time with acute onset palpitations, in the field she was told that her heart rate was as high as 190. She was treated with intravenous Cardizem bolus in the emergency room and reported to have immediately returned to a sinus rhythm. The monitor strips documenting the tachycardia and not available in the patient's records for review. Currently she remains in a stable sinus rhythm, with an occasional PAC. There are no ST or T wave changes. Comorbidities include a history of pulmonary embolism for which she was previously anticoagulated with warfarin, and Eliquis. The patient reports that she no longer is on anticoagulation therapy at the time of this presentation. Echocardiogram today shows normal left ventricular systolic function with ejection fraction 55 to 60%. There was mild to moderate tricuspid regurgitation and mild pulmonary hypertension. Recommendations: Request a thorough review of available records from her ER visit yesterday to uncover any available strips of the tachycardia before treatment. Increase metoprolol to 50 mg p.o. twice daily, and discontinue diltiazem. Otherwise no further cardiac work-up, patient will be referred to hired help as outpatient, and considered for future ablation therapy as indicated. 12/04: Patient this a.m. is doing well no acute problems noted. Leukocytosis was improved this is likely secondary to inflammation. Also recommended outpatient follow-up with [facility] I will also add iron supplementation. I also advised the patient on need to lose weight she verbalized understanding. She will also have her Thyroid evaluated out patient. After the patient she is planning to have a hysterectomy outpatient SVT Hypertension Morbid obesity Systemic inflammatory response syndrome without organ dysfunction Leukocytosis Anemia of chronic disease in a premenopausal female with underlying iron deficiency Disposition: - TO HOME OR SELFCARE Time spent for discharge: 35-minute Core Measure Documentation - Palliative Care Palliative Care/ Comfort Measures: Not Applicable - Core Measures Any of the following diagnoses?: none Exam - Physical Exam Narrative exam: VITAL SIGNS: Reviewed. GENERAL: The patient appears normally developed, morbidly obese vital signs as documented. HEAD: No signs of head trauma. EYES: Pupils are equal. Extraocular motions intact. EARS: Hearing grossly intact. MOUTH: Oropharynx is normal. NECK: No adenopathy, no JVD. CHEST: Chest with clear breath sounds bilaterally. No wheezes, rales, or rhonchi. CARDIAC: Regular rate and rhythm. S1 and S2, without murmurs, gallops, or rubs. VASCULAR: No Edema. Peripheral pulses normal and equal in all extremities. ABDOMEN: Soft, non tender and non distended. No rebound or guarding, and no masses palpated. Bowel Sounds normal. MUSCULOSKELETAL: Good range of motion of all major joints. Extremities without clubbing, cyanosis or edema. NEUROLOGIC EXAM: Alert and oriented x 3 No focal sensory or strength deficits. Speech normal. Follows commands. PSYCHIATRIC: Mood normal. SKIN: detail exam as documented in skin assessment - Constitutional Vitals: Temp Pulse Resp BP Pulse Ox 98.5 F 77 16 132/77 100 12/04/20 04:34 12/04/20 04:34 12/04/20 04:34 12/04/20 04:34 12/04/20 04:34 Plan Activity: advance as tolerated, fall precautions Diet: low fat Special Instructions: record daily weights, record daily BP diary, physical therapy, occupational therapy Additional Instructions: Recommend evaluation of thyroid function test outpatient. Follow up with: NORBERT BASS MD [Primary Care Provider] - 3-5 Days AMBER DICK MD [Staff Physician] - 7 Days Prescriptions: Ferrous Sulfate [Feosol 325 MG tab] 325 mg PO BID #60 tablet Aspirin EC [Halfprin EC] 81 mg PO QDAY #30 tablet Metoprolol [Lopressor TAB] 50 mg PO BID #60 tablet
[2020-12-04] MEDS: ASPIRIN EC 81 MG TAB PO SCH (09:57)
[2020-12-04] MEDS: METOPROLOL TARTRATE 50 MG TAB PO SCH (09:57)
--- NOTE | 2020-12-04 11:06 | Progress Note ---
Assessment and Plan - Patient Problems (1) SVT (supraventricular tachycardia) Current Visit: Yes Status: Acute Plan to address problem: Recurrent SVT on metoprolol 50mg bid for suppression currently in sinus rhythm TSH is 5.2 Echocardiogram this presentations shows normal left ventricular systolic function with ejection fraction 55 to 60%. There was mild to moderate tricuspid regurgitation and mild pulmonary hypertension. Recommendations: Continue metoprolol for suppression of paroxysmal SVT. Stable for discharge home today. Patient will be referred to director call as outpatient, and considered for future ablation therapy as indicated. Subjective Date of service: 12/04/20 Interval history: Patient has no cardiac complaints. Stable sinus rhythm on telemetry. Objective Vital Signs Temp Pulse Pulse Pulse Resp BP BP 12/04/20 04:34 98.5 F 77 16 132/77 12/04/20 00:04 76 16 134/79 12/03/20 21:18 83 12/03/20 21:17 98.6 F 79 20 119/61 12/03/20 19:50 80 20 131/66 12/03/20 19:45 12/03/20 19:40 82 21 131/66 12/03/20 19:30 81 22 131/66 12/03/20 19:20 81 25 H 131/66 12/03/20 19:10 79 23 131/66 12/03/20 19:00 79 22 131/66 12/03/20 18:50 78 23 127/74 12/03/20 18:40 78 22 127/74 12/03/20 18:30 77 22 127/74 12/03/20 18:20 78 22 127/74 12/03/20 18:10 77 22 127/74 12/03/20 18:00 78 20 127/74 12/03/20 17:50 82 24 148/99 12/03/20 17:40 81 22 148/99 12/03/20 17:30 74 18 148/99 12/03/20 17:20 76 21 148/99 12/03/20 17:10 74 23 148/99 12/03/20 17:00 78 20 148/99 12/03/20 16:50 84 19 148/99 12/03/20 16:40 88 21 148/99 12/03/20 16:30 97 H 15 149/87 12/03/20 16:20 85 14 149/87 12/03/20 16:10 86 19 149/87 12/03/20 16:05 86 148/99 12/03/20 16:00 91 H 90 90 31 H 148/99 12/03/20 15:50 86 17 149/87 12/03/20 15:40 83 23 149/87 12/03/20 15:30 89 25 H 149/87 12/03/20 15:20 89 19 149/87 12/03/20 15:10 85 22 149/87 12/03/20 15:00 86 21 149/87 12/03/20 14:50 87 22 142/93 12/03/20 14:40 88 23 142/93 12/03/20 14:30 85 18 142/93 12/03/20 14:20 83 19 142/93 12/03/20 14:10 86 14 142/93 12/03/20 14:00 85 20 155/87 12/03/20 13:50 91 H 19 155/87 12/03/20 13:43 91 H 155/94 12/03/20 13:40 93 H 19 155/87 12/03/20 13:30 91 H 29 H 155/87 12/03/20 13:20 103 H 25 H 155/87 12/03/20 13:10 90 17 155/87 12/03/20 13:00 95 H 22 155/87 12/03/20 12:50 81 21 148/77 12/03/20 12:40 82 19 148/77 12/03/20 12:30 84 20 148/77 12/03/20 12:20 82 20 148/77 12/03/20 12:10 80 18 148/77 12/03/20 12:00 79 90 90 17 148/77 12/03/20 11:50 82 22 145/93 12/03/20 11:40 81 21 145/93 12/03/20 11:30 86 20 145/93 12/03/20 11:20 89 19 145/93 12/03/20 11:10 84 24 145/93 Pulse Ox 12/04/20 04:34 100 12/04/20 00:04 93 12/03/20 21:18 12/03/20 21:17 90 12/03/20 19:50 96 12/03/20 19:45 99 12/03/20 19:40 96 12/03/20 19:30 97 12/03/20 19:20 98 12/03/20 19:10 96 12/03/20 19:00 96 12/03/20 18:50 98 12/03/20 18:40 97 12/03/20 18:30 97 12/03/20 18:20 96 12/03/20 18:10 97 12/03/20 18:00 96 12/03/20 17:50 95 12/03/20 17:40 96 12/03/20 17:30 98 12/03/20 17:20 97 12/03/20 17:10 96 12/03/20 17:00 99 12/03/20 16:50 97 12/03/20 16:40 99 12/03/20 16:30 99 12/03/20 16:20 99 12/03/20 16:10 97 12/03/20 16:05 12/03/20 16:00 99 12/03/20 15:50 99 12/03/20 15:40 97 12/03/20 15:30 99 12/03/20 15:20 100 12/03/20 15:10 100 12/03/20 15:00 98 12/03/20 14:50 99 12/03/20 14:40 97 12/03/20 14:30 100 12/03/20 14:20 99 12/03/20 14:10 98 12/03/20 14:00 97 12/03/20 13:50 100 12/03/20 13:43 12/03/20 13:40 99 12/03/20 13:30 12/03/20 13:20 12/03/20 13:10 99 12/03/20 13:00 100 12/03/20 12:50 94 12/03/20 12:40 95 12/03/20 12:30 96 12/03/20 12:20 96 12/03/20 12:10 92 12/03/20 12:00 98 12/03/20 11:50 95 12/03/20 11:40 99 12/03/20 11:30 99 12/03/20 11:20 95 12/03/20 11:10 97 - Physical Examination General: No Apparent Distress, Other (obese) HEENT: Positive: PERRL Neck: Positive: trachea midline Cardiac: Positive: Reg Rate and Rhythm Lungs: Positive: Normal Breath Sounds Neuro: Positive: Grossly Intact Extremities: Absent: edema - Labs and Meds Coagulation 12/04/20 Range/Units 04:28 PT 13.6 (12.2-14.9) Sec. INR 1.05 (0.87-1.13) CBC 12/04/20 Range/Units 04:28 WBC 11.5 H (4.5-11.0) K/mm3 RBC 4.32 (3.65-5.03) M/mm3 Hgb 7.6 L (10.1-14.3) gm/dl Hct 26.3 L (30.3-42.9) % Plt Count 487 H (140-440) K/mm3 Lymph # (Auto) 3.4 (1.2-5.4) K/mm3 [place] # (Auto) 0.8 (0.0-0.8) K/mm3 Eos # (Auto) 0.2 (0.0-0.4) K/mm3 Baso # (Auto) 0.0 (0.0-0.1) K/mm3 Comprehensive Metabolic Panel 12/04/20 Range/Units 04:28 Sodium 138 (137-145) mmol/L Potassium 4.1 (3.6-5.0) mmol/L Chloride 102.2 (98-107) mmol/L Carbon Dioxide 28 (22-30) mmol/L BUN 9 (7-17) mg/dL Creatinine 0.6 (0.6-1.2) mg/dL Glucose 82 (65-100) mg/dL Calcium 8.3 L (8.4-10.2) mg/dL
[2020-12-04] MEDS ORDERED: ENOXAPARIN 40 MG/0.4 ML INJ SUB-Q SCH (22:00)
== END 2020-12-04 16:28 | disposition home or self-care (01) ==
LOC: ED 02:40 → CC1 04:47 → INTOOBSV 04:47 → IMCU 05:05 → 4A 20:10
PROVIDERS: ADMIT Internal Medicine Geriatric Medicine; ATTEND Internal Medicine
DX: I47.1 Supraventricular tachycardia (principal); I10 Essential (primary) hypertension; Z90.49 Acquired absence of other specified parts of digestive tract; Z79.899 Other long term (current) drug therapy
CPT/HCPCS: 36415; 71045; 80048; 80053; 81001; 83880; 84443; 84484; 84703; 85025; 85610; 93005; 93306; 96365; 96366; 96376; 99291; G0378; J7030; 85007; 96375